=== PATIENT | female | born 1995 | race Hispanic/Latino ===

== ENCOUNTER 2018-07-10 18:13 | Inpatient (IN) | payer BC, MEDICAID | END 2018-07-13 15:15 | disposition home or self-care (01) | LOC: LDH 18:13 → WSH 07-11 21:10 | PROC: 10D00Z1 Extraction of Products of Conception, Low, Open Approach (ICD-10-PCS; principal; 2018-07-11 17:14) | DX: O62.0 Primary inadequate contractions (principal); Z37.0 Single live birth; Z3A.40 40 weeks gestation of pregnancy ==

== ENCOUNTER 2019-08-07 06:01 | Inpatient (IN) | payer BC, MEDICAID ==
[~2019-08-07] VITALS: Ht 149.9 cm; Wt 82.6 kg
[~2019-08-07 06:01] MED LIST: PREN-196 PO
[2019-08-07] MEDS ORDERED: CEFAZOLIN SODIUM 1 GM VIAL IVP PRN (06:15)
[2019-08-07] MEDS ORDERED: LACTATED RINGERS 1000ML 1,000 ML IV SCH (06:15)
[2019-08-07 07:09] LABS: HEMATOCRIT 35.1 % (36-48); MEAN CORPUSCULAR HEMOGLOBIN 28.7 pg (27.0-33.0); MEAN CORPUSCULAR HGB CONC 33.6 g/dL (32.0-36.0); MEAN CORPUSCULAR VOLUME 85.4 fL (79-99); PLATELET COUNT (AUTO) 241 K/uL (130-400); RED BLOOD CELL COUNT(AUTO) 4.11 MIL/uL (4.00-5.50); RED CELL DISTRIBUTION WIDTH 12.6 % (11.0-15.5); WHITE BLOOD COUNT (AUTO) 6.6 K/uL (4.8-10.8)
[2019-08-07] MEDS ORDERED: CALDOLOR 800MG+NS 250ML 250 ML IV ONE (07:27)
[2019-08-07] MEDS ORDERED: FENTANYL CITRATE PF 50 MCG/1 ML 2ML VIAL ONE (07:27)
[2019-08-07] MEDS ORDERED: DURAMORPH PF1 MG/ML 10ML AMP IV ONE (07:27)
[2019-08-07] MEDS ORDERED: CITRIC ACID/SODIUM CITRATE 30 ML UDCUP ONE (07:31)
[2019-08-07] MEDS ORDERED: METOCLOPRAMIDE 10 MG/2 ML VIAL ONE (07:31)
[2019-08-07] MEDS ORDERED: CEFAZOLIN SODIUM 1 GM VIAL IVP ONE (08:00)
[2019-08-07] MEDS ORDERED: OXYTOCIN 10 UNIT/1ML 10ML VIAL ONE (08:12)
[2019-08-07] MEDS ORDERED: METHYLERGONOVINE MALEATE 0.2 MG/1 ML ML ONE (08:28)
[2019-08-07] MEDS ORDERED: ONDANSETRON HCL 4 MG/2 ML VIAL ONE (08:45)
[2019-08-07] MEDS ORDERED: PHENYLEPHRINE HCL 10 MG/ML 1ML VIAL IV ONE (08:45)
[2019-08-07] MEDS ORDERED: DIPHENHYDRAMINE HCL 25 MG CAPSULE PO PRN (09:00)
[2019-08-07] MEDS ORDERED: IBUPROFEN 600 MG TABLET PO PRN (09:00)
[2019-08-07] MEDS ORDERED: ACETAMINOPHEN-CODEINE 300/30MG TAB PO PRN (09:00)
[2019-08-07] MEDS ORDERED: LANOLIN 30GM OINTMENT TP PRN (09:00)
[2019-08-07] MEDS ORDERED: PROMETHAZINE HCL 25 MG/ML 1ML AMPULE IM PRN (09:00)
[2019-08-07] MEDS ORDERED: HYDROCODONE/ACETAMINOPHEN 5/325 MG TAB PO PRN (09:00)
[2019-08-07] MEDS ORDERED: BISACODYL 10 MG SUPP.RECT RC PRN (09:00)
[2019-08-07] MEDS ORDERED: LIDOCAINE 5% TOPICAL PATCH TP SCH (09:00)
[2019-08-07] MEDS ORDERED: MEPERIDINE-PF 75 MG/ML SYG IM PRN (09:00)
[2019-08-07] MEDS ORDERED: ACETAMINOPHEN EXTRA STRENGTH 500 MG TABLET PO PRN (09:00)
[2019-08-07] MEDS ORDERED: MEASLES/MUMPS/RUBELLA VACCINE, LIVE 0.5 ML/VIAL SQ SCH (09:00)
[2019-08-07] MEDS ORDERED: OXYTOCIN-LR 20 UNITS/1000 ML 1,000 ML IV PRN (09:00)
[2019-08-07] MEDS ORDERED: DIPH,PERTUSS(ACELL),TET VAC/PF 0.5 ML VIAL IM SCH (09:00)
[2019-08-07] MEDS ORDERED: SODIUM CHLORIDE 0.9% 10 ML VIAL IVP PRN (09:00)
[2019-08-07] MEDS ORDERED: LORATADINE 10 MG TABLET PO PRN (09:15)
[2019-08-07 10:29] VITALS: BP 109/73
--- NOTE | 2019-08-07 10:40 | NUR ---
PATIENT ORIENTED TO ROOM. FUNDUS FIRM, BLEEDING SCANT. DRESSING DRY AND INTACT. RUSSO CATHETER DRAINING TO BEDSIDE. INSTRUCTED PATIENT ON USE AND DESIRED EFFECTS OF LANOLIN. ADVISED PATIENT TO CALL WITH ANY NEEDS OR CONCERNS.
[2019-08-07 11:50] VITALS: BP 144/75
[2019-08-07 16:29] VITALS: BP 122/69
[2019-08-07] MEDS: CALDOLOR 800MG+NS 250ML 250 ML IV SCH (17:35)
[2019-08-07 19:33] VITALS: BP 103/62
[2019-08-07 20:46] VITALS: BP 103/62
[2019-08-07] MEDS: SIMETHICONE 80 MG TAB.CHEW PO PRN (21:08)
[2019-08-07] MEDS: DOCUSATE SODIUM 100 MG CAP PO SCH (21:09)
[2019-08-07] MEDS: DEXTROSE 5 %-0.45 % NACL 1,000 ML IV PRN (22:51)
[2019-08-07 23:26] VITALS: BP 99/58
[2019-08-08] MEDS: CALDOLOR 800MG+NS 250ML 250 ML IV SCH (00:45)
[2019-08-08 03:23] VITALS: BP 91/54
[2019-08-08 05:26] LABS: HEMATOCRIT 31.5 % (36-48); MEAN CORPUSCULAR HEMOGLOBIN 29.9 pg (27.0-33.0); PLATELET COUNT (AUTO) 199 K/uL (130-400); RED BLOOD CELL COUNT(AUTO) 3.58 MIL/uL (4.00-5.50); RED CELL DISTRIBUTION WIDTH 12.7 % (11.0-15.5); WHITE BLOOD COUNT (AUTO) 7.9 K/uL (4.8-10.8)
--- NOTE | 2019-08-08 06:15 | NUR ---
Activity: William Catheter taken out patient tolerated well. Patient assisted to dangle her legs at bedside and walk & sit at bedside chair. Patient informed to call for help if needed, she verbalizes understanding.
[2019-08-08 07:28] VITALS: BP 116/65
[2019-08-08 08:09] LABS: HEPATITIS Bs ANTIGEN SCREEN P Negative (Negative)
[2019-08-08] MEDS: DEXTROSE 5 %-0.45 % NACL 1,000 ML IV PRN (08:15)
[2019-08-08] MEDS ORDERED: IBUPROFEN 800 MG TAB PO SCH (09:00)
[2019-08-08] MEDS: SIMETHICONE 80 MG TAB.CHEW PO PRN (09:48)
[2019-08-08] MEDS: DOCUSATE SODIUM 100 MG CAP PO SCH (09:49)
[2019-08-08] MEDS: IBUPROFEN 800 MG TAB PO SCH ×2 (09:49→17:29)
[2019-08-08 11:31] VITALS: BP 101/72
--- NOTE | 2019-08-08 11:50 | NUR ---
DR. LEAHY CALLED AND WAS UPDATED ON PATIENT'S STATUS AND LABS. NEW ORDERS RECEIVED, PATIENT MAY BE DISCHARGED IN EVENING IF BABY IS DISCHARGED.
--- NOTE | 2019-08-08 16:00 | NUR ---
PATIENT WALKING IN HALLWAY. NO C/O DIZZINESS REPORTED. STEADY GAIT NOTED.
[2019-08-08 16:58] VITALS: BP 114/64
--- NOTE | 2019-08-08 18:30 | NUR ---
PATIENT REPORTS PASSING FLATUS
--- NOTE | 2019-08-08 19:10 | NUR ---
PATIENT LEFT UNIT VIA WHEELCHAIR WITH BABY IN HAND. PERSONAL VEHICLE USED FOR TRANSPORTATION. BABY SECURE IN CARSEAT.
== END 2019-08-08 19:10 | disposition home or self-care (01) | DRG 788 ==
LOC: LDH 06:01 → EDSTATUS 07:30 → WSH 10:25
PROVIDERS: ADMIT Obstetrics & Gynecology; ATTEND Obstetrics & Gynecology
PROC: 3E0234Z Introduction of Serum, Toxoid and Vaccine into Muscle, Percutaneous Approach (ICD-10-PCS; 2019-08-07)
PROC: 3E0134Z Introduction of Serum, Toxoid and Vaccine into Subcutaneous Tissue, Percutaneous Approach (ICD-10-PCS; 2019-08-07)
PROC: 10D00Z1 Extraction of Products of Conception, Low, Open Approach (ICD-10-PCS; principal; 2019-08-07 07:30)
DX: O34.211 Maternal care for low transverse scar from previous cesarean delivery (principal); O69.81X0 Labor and delivery complicated by cord around neck, without compression, not applicable or unspecified; O99.824 Streptococcus B carrier state complicating childbirth; Z3A.39 39 weeks gestation of pregnancy; Z37.0 Single live birth; Z23 Encounter for immunization
CPT/HCPCS: 36415; 59510; 85027; 86592; 86850; 86900; 86901; 87340; A4344; G0378; J0690; J1741; J2210; J2274; J2370; J2405; J2590; J2765; J3010; J7120

== ENCOUNTER 2023-01-20 13:30 | Inpatient (IN) | payer BC, MEDICAID ==
[~2023-01-20] VITALS: Ht 149.9 cm; Wt 82.6 kg
[2023-01-23] MEDS ORDERED: CALDOLOR 800MG+NS 250ML 250 ML IV PRN (05:30)
[2023-01-23] MEDS ORDERED: CEFAZOLIN SODIUM 1 GM VIAL IVPB PRN (05:30)
[2023-01-23] MEDS ORDERED: LACTATED RINGERS 1000ML 1,000 ML IV SCH (05:30)
[2023-01-23 06:15] VITALS: BP 109/61
[2023-01-23 06:35] LABS: HEMATOCRIT 30.4 % (36-48); MEAN CORPUSCULAR HEMOGLOBIN 24.4 pg (27.0-33.0); MEAN CORPUSCULAR HGB CONC 32.2 g/dL (32.0-36.0); MEAN CORPUSCULAR VOLUME 75.8 fL (79-99); PLATELET COUNT (AUTO) 259 K/uL (130-400); RED BLOOD CELL COUNT(AUTO) 4.01 MIL/uL (4.00-5.50); RED CELL DISTRIBUTION WIDTH 18.8 % (11.0-15.5); WHITE BLOOD COUNT (AUTO) 6.8 K/uL (4.8-10.8)
[2023-01-23 06:50] LABS: APPEARANCE,URINE CLEAR (CLEAR); BILIRUBIN,URINE NEGATIVE (NEGATIVE); COLOR,URINE COLORLESS (YELLOW); GLUCOSE, URINE (UA) NEGATIVE (NEGATIVE); KETONES,URINE NEGATIVE (NEGATIVE); LEUKOCYTE ESTERASE ,URINE NEGATIVE Leu/uL (NEGATIVE); NITRATE,URINE NEGATIVE (NEGATIVE); OCCULT BLOOD,URINE NEGATIVE (NEGATIVE); PH,URINE 6.5 (5.0-8.0); PROTEIN,URINE NEGATIVE (NEGATIVE); UROBILINOGEN,URINE 0.2 mg/dL (0.2-1.0)
[2023-01-23 06:54] LABS: ADD UA MICROSCOPIC NO
[2023-01-23] MEDS ORDERED: METHYLERGONOVINE MALEATE 0.2 MG/1 ML ML ONE (07:17)
[2023-01-23] MEDS ORDERED: FENTANYL CITRATE PF 50 MCG/1 ML 2ML VIAL ONE (07:46)
[2023-01-23] MEDS ORDERED: MORPHINE PF 100MG/10ML AMP IV ONE (07:46)
[2023-01-23] MEDS ORDERED: PHENYLEPHRINE HCL 10 MG/ML 1ML VIAL IV ONE (07:47)
[2023-01-23] MEDS ORDERED: CEFAZOLIN SODIUM 2 GM VIAL IVPB ONE (08:26)
[2023-01-23] MEDS ORDERED: OXYTOCIN 10 UNIT/1ML 10ML VIAL ONE (09:11)
[2023-01-23] MEDS ORDERED: METOCLOPRAMIDE 10 MG/2 ML VIAL ONE (09:11)
[2023-01-23] MEDS ORDERED: PROMETHAZINE HCL 25 MG/ML 1ML AMPULE IM PRN (09:30)
[2023-01-23] MEDS ORDERED: OXYTOCIN-LR 30 UNITS/500ML 500 ML IV PRN (09:30)
[2023-01-23] MEDS ORDERED: MEPERIDINE-PF 75 MG/ML SYG IM PRN (09:30)
[2023-01-23] MEDS ORDERED: 0.9%NACL 10ML VIAL IVP PRN (09:30)
[2023-01-23 12:00] VITALS: BP 126/59; PULSE 81; RESP 20
[2023-01-23 16:00] VITALS: BP 106/55; PULSE 70; RESP 20
[2023-01-23] MEDS: CALDOLOR 800MG+NS 250ML 250 ML IV SCH (17:32)
[2023-01-23 19:35] VITALS: BP 114/72; PULSE 74; RESP 16
[2023-01-23] MEDS: DEXTROSE 5 %-0.45 % NACL 1,000 ML IV PRN (21:45)
[2023-01-23 23:45] VITALS: BP 103/58; PULSE 77; RESP 18
[2023-01-23 23:50] VITALS: BP 110/64; PULSE 74; RESP 17
[2023-01-24] MEDS: CALDOLOR 800MG+NS 250ML 250 ML IV SCH (01:29)
[2023-01-24] MEDS ORDERED: LANOLIN 30GM OINTMENT TP PRN (02:00)
[2023-01-24] MEDS ORDERED: BISACODYL 10 MG SUPP.RECT RC PRN (02:00)
[2023-01-24] MEDS ORDERED: ACETAMINOPHEN 500 MG TABLET PO PRN (02:00)
[2023-01-24] MEDS ORDERED: ACETAMINOPHEN WITH CODEINE 1 TAB TAB PO PRN (02:00)
[2023-01-24] MEDS ORDERED: SIMETHICONE 80 MG TAB.CHEW PO PRN (02:00)
[2023-01-24] MEDS ORDERED: DIPHENHYDRAMINE HCL 25 MG CAPSULE PO PRN (02:00)
[2023-01-24] MEDS ORDERED: HYDROCODONE/ACETAMINOPHEN 5/325 MG TAB PO PRN (02:00)
[2023-01-24] MEDS ORDERED: DIPH,PERTUSS(ACELL),TET VAC/PF 0.5 ML VIAL IM SCH (02:00)
[2023-01-24 03:45] VITALS: BP 114/63; PULSE 89; RESP 16
[2023-01-24] MEDS: DEXTROSE 5 %-0.45 % NACL 1,000 ML IV PRN (06:13)
[2023-01-24 06:27] LABS: HEMATOCRIT 28.5 % (36-48); MEAN CORPUSCULAR HEMOGLOBIN 24.7 pg (27.0-33.0); MEAN CORPUSCULAR HGB CONC 32.3 g/dL (32.0-36.0); MEAN CORPUSCULAR VOLUME 76.4 fL (79-99); RED BLOOD CELL COUNT(AUTO) 3.73 MIL/uL (4.00-5.50); RED CELL DISTRIBUTION WIDTH 19.4 % (11.0-15.5); WHITE BLOOD COUNT (AUTO) 6.9 K/uL (4.8-10.8)
[2023-01-24 07:45] VITALS: BP 107/58; PULSE 75
[2023-01-24] MEDS: DOCUSATE SODIUM 100 MG CAP PO SCH ×2 (09:15→21:01)
[2023-01-24] MEDS: IBUPROFEN 800 MG TAB PO SCH ×2 (09:15→16:45)
[2023-01-24] MEDS ORDERED: FLU VACC QS2023-24(6MOS UP)/PF 60 MCG/0.5 ML IM ONE ×3 (10:30→17:40)
[2023-01-24 12:10] VITALS: BP 104/66; PULSE 90; RESP 18
[2023-01-24 16:09] VITALS: BP 112/73; PULSE 79
[2023-01-24 19:35] VITALS: BP 113/67; PULSE 80; RESP 18
[2023-01-25] MEDS: IBUPROFEN 800 MG TAB PO SCH ×2 (00:38→10:03)
[2023-01-25 03:50] VITALS: BP 107/74; PULSE 71; RESP 20
[2023-01-25 07:30] VITALS: BP 112/73; PULSE 73; RESP 18
[2023-01-25] MEDS: DOCUSATE SODIUM 100 MG CAP PO SCH (10:02)
== END 2023-01-25 12:30 | disposition home or self-care (01) | DRG 788 ==
LOC: LDH 01-23 05:07 → WSH 01-23 19:20
PROVIDERS: ADMIT Obstetrics & Gynecology; ATTEND Obstetrics & Gynecology
PROC: 10D00Z1 Extraction of Products of Conception, Low, Open Approach (ICD-10-PCS; principal; 2023-01-23 08:00)
DX: O99.02 Anemia complicating childbirth (principal); O34.211 Maternal care for low transverse scar from previous cesarean delivery; O99.214 Obesity complicating childbirth; Z37.0 Single live birth; Z3A.39 39 weeks gestation of pregnancy
CPT/HCPCS: 36415; 59510; 81003; 85027; 86592; 86850; 86900; 86901; 87340; 90715; A4344; G0378; J0690; J1741; J2210; J2274; J2371; J2590; J2765; J3010; J7120; Q2035; A4248; C1765; Q2038